=== PATIENT | male | born 1995 | race American Indian/Alaskan Native ===

== ENCOUNTER 2017-01-31 12:34 | Emergency (ER) | payer MEDICAID ==
[2017-01-31 13:08] VITALS: BMI 23.6
[2017-01-31 13:09] VITALS: TEMP 97.9
[2017-01-31] MEDS ORDERED: Sodium Chloride 0.9% 1,000 ML IV ONE (13:09)
[2017-01-31] MEDS ORDERED: Tetanus/Diphtheria Toxoids 0.5 ml Syringe IM ONE (13:09)
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
[2017-01-31] MEDS ORDERED: Iodixanol 320 MG/ML 100 ML BOTTLE IV ONE (13:18)
--- NOTE | 2017-01-31 13:31 | RAD ---
PROCEDURE: CHEST RADIOGRAPH, 1 VIEW HISTORY: TRAUMA COMPARISON: None available. FINDINGS: LUNGS: Clear. PLEURA: No pneumothorax or pleural fluid seen. CARDIOVASCULAR: Normal. OSSEOUS STRUCTURES: No significant abnormalities. VISUALIZED UPPER ABDOMEN: Normal. OTHER FINDINGS: None. IMPRESSION: No active disease.
[2017-01-31 13:47] LABS: BASO % 0.4 % (0.0-2.0); EOS % 0.2 % (0.0-4.0); HEMATOCRIT 41.6 % (35.0-51.0); LYMPH # 1.1 K/uL (1.0-4.3); LYMPH % 9.7 % (20.0-40.0); MEAN CORPUSCULAR HEMOGLOBIN 28.9 pg (27.0-31.0); MEAN CORPUSCULAR HGB CONC 32.9 g/dL (33.0-37.0); MEAN PLATELET VOLUME 9.1 fL (7.2-11.7); MONO % 8.9 % (0.0-10.0); NRBC % 0.1 % (0.0-2.0); PLATELET COUNT 177 K/uL (130-400); RED CELL DISTRIBUTION WIDTH 14.7 % (11.5-14.5); WHITE BLOOD COUNT 11.3 K/uL (4.8-10.8)
[2017-01-31 13:56] LABS: INR 1.1
[2017-01-31 14:00] LABS: ALCOHOL SERUM < 10 mg/dl (0-10); ALKALINE PHOSPHATASE 62 U/L (38-126); ALT/SGPT 42 U/L (21-72); AST/SGOT 55 U/L (17-59); BILIRUBIN,TOTAL 0.8 mg/dL (0.2-1.3); BLOOD UREA NITROGEN 12 mg/dL (9-20); CALCIUM 8.7 mg/dl (8.6-10.4); CARBON DIOXIDE 25 mmol/L (22-30); CHLORIDE 102 mmol/L (98-107); GFR AFRICAN-AMERICAN > 60; GLUCOSE,RANDOM 83 mg/dL (75-110); POTASSIUM 3.2 mmol/L (3.6-5.2); SODIUM 137 mmol/L (132-148); TOTAL PROTEIN 8.6 g/dL (6.3-8.3)
[2017-01-31 14:01] LABS: ALB/GLOB RATIO 1.1 (1.0-2.1)
[2017-01-31 14:21] VITALS: RESP 19; O2SAT 100
--- NOTE | 2017-01-31 14:24 | CT ---
PROCEDURE: CT HEAD WITHOUT CONTRAST. HISTORY: TRAUMA COMPARISON: Comparison made with concurrent CT scan maxillofacial skeleton TECHNIQUE: Axial computed tomography images were obtained through the head/brain without intravenous contrast. Radiation dose: Total exam DLP = 1449.53 mGy-cm. This CT exam was performed using one or more of the following dose reduction techniques: Automated exposure control, adjustment of the mA and/or kV according to patient size, and/or use of iterative reconstruction technique. FINDINGS: HEMORRHAGE: No acute parenchymal, subarachnoid or extra-axial hemorrhage. BRAIN: No mass effect or edema. No atrophy or chronic microvascular ischemic changes. VENTRICLES: No obstructive hydrocephalus. CALVARIUM: There are no acute calvarial fractures so far as can be seen. Mild left premaxillary periorbital soft tissue swelling. There is also a small mid and left frontal scalp contusion. . Mild bilateral posterior superior parietal scalp edema felt to be present. PARANASAL SINUSES: There is a laceration over the nasal bones extending superiorly just to the left of midline at the level of the glabella with surrounding soft tissue swelling. . The paranasal sinuses are well-developed and currently well-aerated. There are no fluid levels seen to suggest acute hemorrhage or sinusitis. Minor mucosal thickening inferior margins both maxillary antra right greater than left MASTOID AIR CELLS: Unremarkable as visualized. No inflammatory changes. OTHER FINDINGS: Orbits and contents grossly unremarkable. Globes intact and lenses appropriately located IMPRESSION: No acute intracranial hemorrhage. Left-sided facial and frontal scalp swelling. There is also a laceration over mid nasal bones extending superiorly to the left of midline to the level of the glabella. There is also of mid and left frontal scalp swelling. Mild biparietal subcutaneous scalp edema felt to be present
--- NOTE | 2017-01-31 14:30 | CT ---
PROCEDURE: CT scan maxillofacial skeleton dated 01/30/17. HISTORY: Trauma COMPARISON: Comparison made with concurrent CT scan brain TECHNIQUE: Contiguous helical/transaxial CT images of the maxillofacial bones were obtained. Coronal and sagittal reformats were generated. Radiation dose: Total exam DLP = 822.98 mGy-cm. This CT exam was performed using one or more of the following dose reduction techniques: Automated exposure control, adjustment of the mA and/or kV according to patient size, and/or use of iterative reconstruction technique. FINDINGS: The current study reveals moderate left-sided facial soft tissue swelling that extends from the inferior premaxillary region superiorly into the periorbital and left supraorbital soft tissues. . There is also soft tissue swelling extends posteriorly and laterally over the left zygomatic arch. . Mild mid and left frontal scalp contusion/soft tissue swelling. There is a laceration over the mid nasal bones extending superiorly into the left to the level of nasion/glabella with surrounding soft tissue swelling. . . There may be a minimally displaced left anterior nasal bone fracture deformity. The visualized paranasal sinuses well-developed and currently well-aerated. There are no fluid levels seen to suggest acute hemorrhage or sinusitis. Minor mucosal thickening noted within the inferior margins of both maxillary antra right greater than left. Bony orbits intact. Globes intact and lenses appropriately located. There are no retrobulbar hemorrhages or collections. Optic nerves and extraocular musculature unremarkable. . IMPRESSION: Moderate left-sided facial soft tissue swelling extends superiorly into the periorbital and frontal region. There is also a laceration over the nasal bones on with subcutaneous swelling. Suspect small the minimally displaced fracture left anterior nasal bones.
[2017-01-31 14:31] LABS: NEUTROPHIL 77 % (50-75); REACTIVE LYMPHOCYTES 1 % (0-0); TOTAL CELLS COUNTED 100
--- NOTE | 2017-01-31 14:36 | CT ---
PROCEDURE: CT Cervical Spine without contrast HISTORY: Trauma. COMPARISON: None available. TECHNIQUE: Axial computed tomography images were obtained of the cervical spine without the use of intravenous contrast. Coronal and sagittal reformatted images were created. Note that in situ hard cervical collar is present which results in mild crossing artifact. Radiation dose: Total exam DLP = 578.28 mGy-cm. This CT exam was performed using one or more of the following dose reduction techniques: Automated exposure control, adjustment of the mA and/or kV according to patient size, and/or use of iterative reconstruction technique. FINDINGS: VERTEBRAE: No fracture. Normal alignment. No destructive bony lesion. DISCS/SPINAL CANAL/NEURAL FORAMINA: No significant central canal or neural foraminal stenosis. Discs heights are grossly preserved. PARASPINAL SOFT TISSUES: The prevertebral/paraspinal soft tissues unremarkable. OTHER FINDINGS: Lung apices clear. IMPRESSION: No acute fractures.
[2017-01-31] MEDS ORDERED: Lidocaine 2% Inj (20ml) INFIL ONE (14:39)
[2017-01-31] MEDS ORDERED: Lidocaine 2% Inj (20ml) ONE (14:51)
[2017-01-31] MEDS ORDERED: Tmp-Smz 800 mg-160 mg DS Tab PO STA (15:39)
[2017-01-31 16:05] VITALS: BP 134/79; PULSE 89
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
--- NOTE | 2017-01-31 16:08 | RAD ---
PROCEDURE: Radiographs of the pelvis. HISTORY: TRAUMA COMPARISON: None. FINDINGS: BONES: Pelvic Bones: Unremarkable. Hips: Grossly unremarkable. JOINTS: Sacroiliac Joints: Unremarkable. Pubic Symphysis: Unremarkable. OTHER FINDINGS: None. IMPRESSION: Unremarkable radiographs of the pelvis.
--- NOTE | 2017-01-31 16:28 | RAD ---
PROCEDURE: Radiographs of the Left Shoulder HISTORY: Trauma. COMPARISON: No prior FINDINGS: BONES: Normal. No fracture. JOINTS: Normal. Glenohumeral and acromioclavicular joints preserved. No osteoarthritis. SOFT TISSUES: Normal. OTHER FINDINGS: None. IMPRESSION: Normal radiographs of the left shoulder.
== END 2017-01-31 16:06 | disposition home or self-care (01) ==
LOC: C.ER 12:34
DX: S02.80XA Fracture of other specified skull and facial bones, unspecified side, initial encounter for closed fracture (principal); S01.21XA Laceration without foreign body of nose, initial encounter; Y08.89XA Assault by other specified means, initial encounter; Y92.89 Other specified places as the place of occurrence of the external cause
CPT/HCPCS: 12013; 70450; 70486; 71010; 71260; 72125; 72170; 73030; 74177; 80053; 80074; 80320; 82150; 82948; 85025; 85610; 85730; 86592; 86703; 86706; 86850; 86900; 96360; 96361; 99285; J7040; Q9967